=== PATIENT | male | born 1965 | race Caucasian/White ===

== ENCOUNTER → 2020-09-08 | Emergency (ER) | payer BC ==
[~2020-09-08] VITALS: Ht 188 cm; Wt 108.9 kg
== END ==
LOC: ED 17:28
DX: S61.213A Laceration without foreign body of left middle finger without damage to nail, initial encounter (principal); W26.8XXA Contact with other sharp object(s), not elsewhere classified, initial encounter
CPT/HCPCS: 12001; 90471; 90715; 99282-25

== ENCOUNTER 2021-05-12 07:05 | Day surgery (SDC) | payer BC ==
[~2021-05-12] VITALS: Ht 190.5 cm; Wt 96.0 kg
[~2021-05-12 07:05] MED LIST: LIPITOR20 MG PO; LISINOPRIL-HCT1 EACH PO
--- NOTE | 2021-05-12 08:53 | NUR ---
05/12/21 0853 Tracie Arnett 0819- PT ARRIVES TO PACU EASILY AROUSABLE TO VOICE. PT REPORTS NO PAIN OR NAUSEA. RESP EVEN AND UNLABORED. OXYGEN SAT HIGH 90'S ON 2L VIA NC. PT ENCOURAGED TO PASS FLATUS.
--- NOTE | 2021-05-13 09:00 | OR ---
[facility] [address] [place], [place] [address] Signed DATE OF OPERATION: 05/12/2021 SURGEON: Isauro Ariza MD PREOPERATIVE DIAGNOSIS: Screening. POSTOPERATIVE DIAGNOSES: 1. 5 mm polyp base of ileocecal valve/proximal right colon. 2. Minimal to moderate sigmoid diverticulosis. 3. Minimal to moderate internal hemorrhoids. 4. Long redundant colon with angulation. PROCEDURE: Colonoscopy with hot biopsy. ESTIMATED BLOOD LOSS: None. INDICATIONS: Bonifacio is a 55-year-old gentleman, asked to see me for his initial screening colonoscopy. He has no lower GI complaints. There is no family history of colon cancer or polyps. I gave him a pamphlet in the office on colonoscopy and we reviewed the nature of the test along with the risks including, but not limited to gas bloating, crampy abdominal pain, bleeding, perforation requiring surgery, and missed diagnosis. We also discussed the need for IV conscious sedation. He had expressed understanding and wished to proceed. PROCEDURE NOTE: Bonifacio was taken into our endoscopy suite and placed in the left lateral decubitus position. He was given a total of 7 mg of Versed and 150 mcg of fentanyl. A digital rectal exam was performed and this demonstrated a mildly indurated and mildly swollen prostate gland. The adult colonoscope was introduced and advanced under direct visualization of camera. He has a long redundant angulated colon. It took extra sedation and abdominal compression and moving Bonifacio into the supine position in order to get the camera down into the cecum itself. His prep was average. He might consider a double bowel prep in the future. We could see the appendiceal orifice and the ileocecal valve. There was a polyp at the base of the ileocecal valve. It was removed with a hot biopsy forceps. We had taken pictures throughout for photodocumentation. The scope was then slowly withdrawn. He does have diverticula in the sigmoid colon. Electronically Signed By: ISAURO ARIZA MD 05/13/21 0900 PATIENT NAME: BONIFACIO WILCOX OPERATIVE REPORT DATE OF : 63 REPORT #: [id number] PHYSICIAN: ISAURO ARIZA MD PCP: ASUNCION ONTIVEROS MD REPORT IS CONFIDENTIAL AND NOT TO BE RELEASED WITHOUT AUTHORIZATION [facility] [address] [place] [address] Signed They were moderate in size, few to moderate in number, and scattered about. The rectum was unremarkable. Upon retroflexion of scope, he does have minimal to moderate internal hemorrhoid columns. After this, the gas was suctioned out and the colonoscope removed. Bonifacio tolerated the procedure quite well. RECOMMENDATIONS: I will see Bonifacio back in my office in 7 to 14 days to review his results. He might consider a double bowel prep in the future. Isauro Ariza MD ALB/MODL /[id number] cc: MD Asuncion Gillespie MD Copies: ISAURO ARIZA MD ~ Electronically Signed By: ISAURO ARIZA MD 05/13/21 0900 PATIENT NAME: BONIFACIO WILCOX ISAURO OPERATIVE REPORT DATE OF : 63 REPORT #: [id number] PHYSICIAN: ISAURO ARIZA MD PCP: ASUNCION ONTIVEROS MD REPORT IS CONFIDENTIAL AND NOT TO BE RELEASED WITHOUT AUTHORIZATION
--- NOTE | 2021-05-13 14:51 | PATH ---
[facility] [address] [place], [place] [address] Signed SPECIMEN(S): A PROXIMAL ASCENDING POLYP SPECIMEN SOURCE: A. PROXIMAL ASCENDING POLYP CLINICAL HISTORY: Screening colonoscopy. Postop: Polyp, internal hemorrhoids. MICROSCOPIC DESCRIPTION: Histologic sections of all submitted blocks are examined by light microscopy. These findings, together with the gross examination, support the pathologic diagnosis. FINAL PATHOLOGIC DIAGNOSIS: Colon, proximal ascending, polyp, polypectomy: - Hyperplastic polyp. - Negative for dysplasia or malignancy. NAL:cml:C2NR GROSS DESCRIPTION: The specimen, labeled "PD, proximal ascending colon polyp," is received in formalin and consists of one aly soft tissue fragment that measures 0.1 cm in greatest dimension. The specimen is entirely submitted in cassette (A1). JS (under the direct supervision of a pathologist) The Gross Description was prepared using a voice recognition system. The report was reviewed for accuracy; however, sound-alike word errors, addition and/or deletions may occur. If there is any question about this report, please contact Client Services. PERFORMING LABORATORY: The technical component was performed by [facility], [address] [place] [id number] (Arc Welder Apprentice: Danielle Robertson MD; CLIA# [id number]). [facility], [address] [place] [id number] (CLIA# [id number]). Diagnostician: Avril Bello MD Pathologist Electronically Signed 05/13/2021 PATIENT NAME: ROBE WILCOX PATHOLOGY DATE OF : 63 REPORT #: [id number] PHYSICIAN: [facility] PCP: ANGELA ONTIVEROS MD REPORT IS CONFIDENTIAL AND NOT TO BE RELEASED WITHOUT AUTHORIZATION [address] [place], [place] [address] Signed Copies: ~ PATIENT NAME: ROBE WILCOX PATHOLOGY DATE OF : 63 REPORT #: [id number] PHYSICIAN: [facility] PCP: ANGELA ONTIVEROS MD REPORT IS CONFIDENTIAL AND NOT TO BE RELEASED WITHOUT AUTHORIZATION
== END 2021-05-12 09:40 | disposition home or self-care (01) ==
LOC: OPS 07:05 → DS 07:05 → OPS 08:30 → DS 08:30 → OPS 09:40
PROVIDERS: ATTEND Colon & Rectal Surgery
PROC: 0DBC8ZX Excision of Ileocecal Valve, Via Natural or Artificial Opening Endoscopic, Diagnostic (ICD-10-PCS; principal; 2021-05-12 08:30)
DX: Z12.11 Encounter for screening for malignant neoplasm of colon (principal); K63.5 Polyp of colon; K57.30 Diverticulosis of large intestine without perforation or abscess without bleeding; K64.8 Other hemorrhoids; I10 Essential (primary) hypertension; Q43.8 Other specified congenital malformations of intestine; Z88.0 Allergy status to penicillin; Z88.1 Allergy status to other antibiotic agents
CPT/HCPCS: 99153; G0500; J2250; J3010; J7121